=== PATIENT | female | born 2000 | race Caucasian/White ===

== ENCOUNTER 2021-01-21 08:24 | Emergency (ER) | payer MEDICAID, OTHER ==
--- NOTE | 2021-01-21 09:01 | EDM.PDOC ---
ED HPI GENERAL MEDICAL PROBLEM - General Chief Complaint: General Stated Complaint: WISDOM TOOTH PAIN ON R SIDE Time Seen by Provider: 01/21/21 08:51 Source of Information: Reports: Patient, Family, RN Notes Reviewed History Limitations: Reports: No Limitations - History of Present Illness INITIAL COMMENTS - FREE TEXT/NARRATIVE: 20-year-old female presents emergency department day complaint of dental pain, she states she is scheduled to have her wisdom teeth extracted however this is not until April of next year. She is having difficulty sleeping at night because of the pain no fevers - Related Data Allergies Allergy/AdvReac Type Severity Reaction Status Date / Time Penicillins AdvReac Hives Verified 01/21/21 08:46 Home Meds: Home Meds Clindamycin HCl 300 mg PO BID 01/21/21 [History] Ibuprofen 200 mg PO Q4H PRN 01/21/21 [History] Past Medical History - Past Surgical History Head Surgeries/Procedures: Reports: None Dermatological Surgical History: Reports: None Social & Family History - Tobacco Use Tobacco Use Status *Q: Never Tobacco User Second Hand Smoke Exposure: No - Caffeine Use Caffeine Use: Reports: Tea - Recreational Drug Use Recreational Drug Use: No ED ROS GENERAL - Review of Systems Review Of Systems: See Below Constitutional: Denies: Fever, Chills HEENT: Reports: Dental Pain Respiratory: Reports: No Symptoms GI/Abdominal: Reports: No Symptoms ED EXAM, GENERAL - Physical Exam Exam: See Below Free Text/Narrative:: Mouth mucosa is moist and pink no erythema or exudate noted in soft palate tongue is midline uvula is midline, dental caries noted otherwise no broken teeth Exam Limited By: No Limitations General Appearance: Alert, WD/WN, No Apparent Distress Course - Vital Signs Last Recorded V/S: Last Vital Signs Temp 97.7 F 01/21/21 08:49 Pulse 86 01/21/21 08:49 Resp 15 01/21/21 08:49 BP 112/67 01/21/21 08:49 Pulse Ox 95 01/21/21 08:49 Departure - Departure Time of Disposition: 09:00 Disposition: Home, Self-Care 01 Condition: Fair Clinical Impression: Pain, dental - Discharge Information Instructions: Dental Pain, Managing Pain Without Opioids Referrals: PCP,None [Primary Care Provider] - Additional Instructions: Continue to use ibuprofen for baseline pain control, use hydrocodone for breakthrough pain please call your dentist on Sunday for further evaluation Sepsis Event Note (ED) - Evaluation Sepsis Screening Result: No Definite Risk - Focused Exam Vital Signs: Vital Signs Temp Pulse Resp BP Pulse Ox 01/21/21 08:49 97.7 F 86 15 112/ 95 01/21/21 08:46 97.7 F 86 15 95 - Assessment/Plan Plan: Assessment Acuity = acute Site and laterality = dental pain Etiology = unknown Manifestations = none Location of injury = Home Lab values = none Plan Hydrocodone 5/325 1 tab p.o. 3 times daily as needed total #10 she will follow- up with dentistry on Sunday This note was dictated using [employer] voice recognition software please call with any questions on syntax or grammar.
== END 2021-01-21 09:10 | disposition home or self-care (01) ==
LOC: JP.ED 08:24
DX: K08.89 Other specified disorders of teeth and supporting structures (principal); Z88.0 Allergy status to penicillin
CPT/HCPCS: 99282

== ENCOUNTER 2021-01-30 19:58 | Emergency (ER) | payer MEDICAID ==
[2021-01-30] MEDS ORDERED: Ketorolac 30 MG/ML SDV IM ONE (20:36)
--- NOTE | 2021-01-30 20:48 | EDM.PDOC ---
ED HPI GENERAL MEDICAL PROBLEM - General Chief Complaint: ENT Problem Stated Complaint: JAW/TOOTH PAIN Time Seen by Provider: 01/30/21 20:28 Source of Information: Reports: Patient, Family, RN Notes Reviewed History Limitations: Reports: No Limitations - History of Present Illness INITIAL COMMENTS - FREE TEXT/NARRATIVE: Ana Rosa presents today for complaints of poorly controlled dental pain. She was recently in the emergency room for dental pain due to impacted molars and cavity. She was given hydrocodone and instructed to take ibuprofen as directed. Pending appointment with oral surgeon in April. Pain continues and she is out of hydrocodone which she has taken at night. She denies fever, chills, nausea, and new dental cavities, injury or trauma. Right Oral/Mouth Pain Score (Numeric/FACES): 10 - Related Data Allergies Allergy/AdvReac Type Severity Reaction Status Date / Time Penicillins AdvReac Hives Verified 01/21/21 08:46 Home Meds: Home Meds Ibuprofen 200 mg PO Q4H PRN 01/21/21 [History] Past Medical History - Past Health History Medical/Surgical History: Denies Medical/Surgical History - Past Surgical History Head Surgeries/Procedures: Reports: None Dermatological Surgical History: Reports: None Social & Family History - Tobacco Use Tobacco Use Status *Q: Current Every Day Tobacco User Years of Tobacco use: 2 Packs/Tins Daily: 0.5 - Caffeine Use Caffeine Use: Reports: Tea - Recreational Drug Use Recreational Drug Use: No ED ROS ENT - Review of Systems Review Of Systems: See Below Constitutional: Reports: No Symptoms HEENT: Reports: Dental Pain. Denies: Ear Pain, Nose Pain, Sinus Problem, Throat Pain, Throat Swelling Respiratory: Reports: No Symptoms Cardiovascular: Reports: No Symptoms Endocrine: Reports: No Symptoms GI/Abdominal: Reports: No Symptoms : Reports: No Symptoms Musculoskeletal: Reports: No Symptoms Skin: Reports: No Symptoms Neurological: Reports: No Symptoms Psychiatric: Reports: No Symptoms Hematologic/Lymphatic: Reports: No Symptoms Immunologic: Reports: No Symptoms ED EXAM, ENT - Physical Exam Exam: See Below Exam Limited By: No Limitations General Appearance: Alert, WD/WN, Mild Distress Eye Exam: Bilateral Eye: PERRL Ears: Normal External Exam, Normal Canal, Hearing Grossly Normal, Normal TMs Nose: Normal Inspection, Normal Mucousa, No Blood Mouth/Throat: Normal Lips, Normal Oropharynx, Dental Tenderness, Gum Swelling (to posterior gums near all molars. No erythema, disharge or signs of infection noted. ). No: Dental Trauma, Drooling, Dry Mucous Membrane, Lip Swelling, Lip Ulcers, Oral Ulcers, Peritonsillar Mass, Pharyngeal Erythema, Throat Pain, Throat Swelling, Tongue Swelling, Tonsillar Erythema, Tonsillar Exudates, Tonsillar Swelling, Uvular Deviation, Uvular Edema Head: Atraumatic, Normocephalic Neck: Normal Inspection, Supple, Non-Tender, Full Range of Motion. No: Lymphadenopathy (R), Lymphadenopathy (L) Respiratory/Chest: No Respiratory Distress, Lungs Clear, Normal Breath Sounds, No Accessory Muscle Use, Chest Non-Tender. No: Crackles, Rales, Rhonchi, Wheezing, Stridor Cardiovascular: Normal Peripheral Pulses, Regular Rate, Rhythm, No Edema, No Gallop, No Murmur, No Rub Course - Vital Signs Last Recorded V/S: Last Vital Signs Temp 36.5 C 01/30/21 20:15 Pulse 78 01/30/21 20:15 Resp 16 01/30/21 20:15 BP 126/71 01/30/21 20:15 Pulse Ox 95 01/30/21 20:15 - Orders/Labs/Meds Meds: Medications Discontinued Medications Generic Name Dose Route Start Last Admin Trade Name Jose PRN Reason Stop Dose Admin Ketorolac Tromethamine 30 mg 01/30/21 20:36 01/30/21 20:43 Ketorolac 30 Mg/Ml Sdv IM 01/30/21 20:37 30 mg ONETIME ONE Administration [place] [employer] reviewed, appropriate. Departure - Departure Time of Disposition: 20:55 Disposition: Home, Self-Care 01 Condition: Good Clinical Impression: Pain, dental, Impacted molar - Discharge Information *PRESCRIPTION DRUG MONITORING PROGRAM REVIEWED*: Yes *COPY OF PRESCRIPTION DRUG MONITORING REPORT IN PATIENT CATRACHO: No Instructions: Dental Pain, Impacted Molar Referrals: PCP,None [Primary Care Provider] - Forms: ED Department Discharge Additional Instructions: You have been treated and evaluated for dental pain as a result of 4 impacted molars and one dental cavity. You were given toradol 30mg IM for pain. You can take naproxen (Aleve) 500mg by mouth twice a day or every 12 hours for pain. Start naproxen in the morning. This works the best as it helps to decrease inflammation in the gum. Take acetaminophen(tylenol) 1000mg by mouth up to three times a day for pain. If pain is not well controlled then take hydrocodone 5/325mg, one pill up to three times a day. Do not take with acetaminophen as this will be too much acetaminophen. You can also try over the counter dental numbing paste, apply tea bags to the gum and bite down for 30 minutes to help with pain. Contact your dentist on Sunday to see if your extraction can be moved up. It is also important for you to establish care with a primary provider to help with terminal manager pain control if your extractions do not occur until April,. Return as needed. Sepsis Event Note (ED) - Evaluation Sepsis Screening Result: No Definite Risk - Focused Exam Vital Signs: Vital Signs Temp Pulse Resp BP Pulse Ox 01/30/21 20:15 36.5 C 78 16 126/71 95 - Assessment/Plan Assessment:: Pain, dental, Impacted molar Plan: Patient evaluated for dental pain as a result of 4 impacted molars and one dental cavity. She was given toradol 30mg IM for pain. She can take naproxen (Aleve) 500mg by mouth twice a day or every 12 hours for pain. Start naproxen in the morning. Take acetaminophen(tylenol) 1000mg by mouth up to three times a day for pain. If pain is not well controlled then take hydrocodone 5/325mg, one pill up to three times a day. Do not take with acetaminophen as this will be too much acetaminophen. She can try over the counter dental numbing paste, apply tea bags to the gum and bite down for 30 minutes to help with pain. Contact dentist on Sunday to see if extraction can be moved up. It is also important to establish care with a primary provider to help with terminal manager pain control if extractions do not occur until April,. Return as needed.
== END 2021-01-30 21:07 | disposition home or self-care (01) ==
LOC: JP.ED 19:58
DX: K08.89 Other specified disorders of teeth and supporting structures (principal); Z88.0 Allergy status to penicillin; Z72.0 Tobacco use
CPT/HCPCS: 96372; 99282; J1885

== ENCOUNTER 2021-02-17 11:16 | Emergency (ER) | payer MEDICAID ==
[2021-02-17] MEDS ORDERED: Ketorolac 30 MG/ML SDV IM ONE (12:42)
--- NOTE | 2021-02-17 12:43 | EDM.PDOC ---
ED HPI GENERAL MEDICAL PROBLEM - General Chief Complaint: ENT Problem Stated Complaint: WISDOM TEETH PAIN Time Seen by Provider: 02/17/21 12:11 Source of Information: Reports: Patient, Family, RN Notes Reviewed History Limitations: Reports: No Limitations - History of Present Illness INITIAL COMMENTS - FREE TEXT/NARRATIVE: 20-year-old female presents emergency department day complaint of dental pain, she is due to have her wisdom teeth extracted she states in March of this year she has been to the emergency department twice complaining of pain control has received hydrocodone on 2 cases once on the and the other near the end january. Patient states "we called the dental clinic this morning and were informed to report to the emergency department for pain medication" she never did see a provider - Related Data Allergies Allergy/AdvReac Type Severity Reaction Status Date / Time Penicillins AdvReac Hives Verified 02/17/21 11:45 Home Meds: Home Meds Ibuprofen 200 mg PO Q4H PRN 01/21/21 [History] Past Medical History - Infectious Disease History Infectious Disease History: Reports: Novel Coronavirus - Past Surgical History Head Surgeries/Procedures: Reports: None Dermatological Surgical History: Reports: None Social & Family History - Tobacco Use Tobacco Use Status *Q: Never Tobacco User - Caffeine Use Caffeine Use: Reports: Tea - Recreational Drug Use Recreational Drug Use: No ED ROS ENT - Review of Systems Review Of Systems: See Below Constitutional: Reports: No Symptoms HEENT: Reports: Dental Pain Respiratory: Reports: No Symptoms Cardiovascular: Reports: No Symptoms ED EXAM, ENT - Physical Exam Exam: See Below Text/Narrative:: [place] teeth are impacted both lower and upper on the right side, otherwise mouth mucosa is moist and pink no erythema exudate known soft palate tongue is midline uvula is midline dentition is intact except for the impacted teeth Exam Limited By: No Limitations General Appearance: Alert, WD/WN, No Apparent Distress Course - Vital Signs Last Recorded V/S: Last Vital Signs Temp 98.1 F 02/17/21 11:42 Pulse 89 02/17/21 11:42 Resp 16 02/17/21 11:42 BP 129/69 02/17/21 11:42 Pulse Ox 96 02/17/21 11:42 Departure - Departure Time of Disposition: 12:43 Disposition: Home, Self-Care 01 Condition: Fair Clinical Impression: Impacted molar, Pain, dental - Discharge Information Instructions: Acute Pain, Adult Referrals: Romana Montez MD [Primary Care Provider] - Additional Instructions: Please keep your follow-up appointment with your primary care on Sunday Sepsis Event Note (ED) - Evaluation Sepsis Screening Result: No Definite Risk - Focused Exam Vital Signs: Vital Signs Temp Pulse Resp BP Pulse Ox 02/17/21 11:42 98.1 F 89 16 129/69 96 02/17/21 11:34 98.1 F 89 16 129/69 96 - Assessment/Plan Plan: Assessment Acuity = acute Site and laterality = dental pain Etiology = wisdom teeth Manifestations = none Location of injury = Home Lab values = none Plan I counseled her on the use of pain medications she was provided Toradol injection at the time of the ED visit, prescription written for hydrocodone 5/325 1 tab p.o. every 8 hours as needed total #10 she states she has a follow- up appointment with her primary care on Sunday This note was dictated using [employer] voice recognition software please call with any questions on syntax or grammar.
== END 2021-02-17 12:59 | disposition home or self-care (01) ==
LOC: JP.ED 11:16
DX: K01.1 Impacted teeth (principal); Z88.0 Allergy status to penicillin; Z86.16 Personal history of COVID-19
CPT/HCPCS: 96372; 99282; J1885